=== PATIENT | male | born 1935 | race African-American/Black ===

== ENCOUNTER → 2017-01-10 | Outpatient (CLI) | payer OTHER ==
[~2017-01-10] MED LIST: ASPIR 8181 MG PO; DUONEB; LEVOTHYROXINE25 MCG PO; METFORMIN HCL500 MG PO; OMEPRAZOLE40 MG PO; SYMBICORT 160-1 INHA INH; TAMSULOSIN HCL0.4 MG PO; VENTOLIN HFA 66.7 GM INH
== END ==
LOC: CT 12-29 11:30 → OPSV 12-29 12:30 → CT 12-29 15:00 → OPSV 10:48
DX: C34.12 Malignant neoplasm of upper lobe, left bronchus or lung (principal); I89.8 Other specified noninfective disorders of lymphatic vessels and lymph nodes; R91.8 Other nonspecific abnormal finding of lung field
CPT/HCPCS: 71260; 96360; 96361; J7030; J7050; Q9962

== ENCOUNTER → 2022-01-11 | Outpatient (CLI) | payer OTHER ==
[~2022-01-11] MED LIST changes: +PLETAL 100 MG100 MG PO; +PREDNISONE 5 MG5 MG PO; +PROVENTIL HFA6.7 GM INH; +TUDORZA PRESS400 MCG INH
== END ==
LOC: HEART 5 14:38
DX: R06.02 Shortness of breath (principal)
CPT/HCPCS: 94060; 94729